=== PATIENT | female | born 1940 | race Caucasian/White ===

== ENCOUNTER 2017-10-13 16:22 | Emergency (ER) | payer OTHER ==
[~2017-10-13] VITALS: Ht 149.9 cm; Wt 62.0 kg
[~2017-10-13 16:22] MED LIST: HYDROCODON-ACE1 EAC7 PO; IBUPROFEN400 MG PO; LIPITOR40 MG PO; LISINOPRIL-HCT1 EAC3 PO
[2017-10-13 17:09] LABS: APPEARANCE CLEAR ((CLEAR)); BILIRUBIN NEGATIVE; BLOOD NEGATIVE; COLOR COLORLESS ((YELLOW)); GLUCOSE (STRIP) NEGATIVE; KETONES NEGATIVE; LEUKOCYTES NEGATIVE; NITRITE NEGATIVE; PROTEIN (STRIP) NEGATIVE; SPECIFIC GRAVITY 1.006 (1.000-1.030); UCUL ADDED? NO; UROBILINOGEN 0.2 MG/DL (0.2-1.0)
[2017-10-13 17:13] LABS: BASOPHIL (%) 0.5 % (0-1); EOSINOPHIL (%) 1.7 % (0-5); EOSINOPHIL COUNT 0.1 K/uL (0-0.3); HEMOGLOBIN 10.6 G/DL (11.9-15.5); IMMATURE GRANULOCYTE (%) 0.5 % (0.0-0.7); LYMPHOCYTE (%) 25.2 % (15-42); LYMPHOCYTE COUNT 1.9 K/uL (1.0-2.8); MCH 27.9 PG (29.0-34.0); MCHC 33.1 G/DL (30.0-36.0); MCV 84.2 FL (83-99); MONOCYTE COUNT 0.9 K/uL (0-0.8); NEUTROPHIL (%) 60.1 % (45-76); NEUTROPHIL COUNT 4.5 K/uL (1.8-6.4); PLATELET COUNT 373 K/uL (156-360); RBC DIS.WIDTH-CV 13.2 % (11.8-14.6); RBC DIS.WIDTH-SD 40.4 % (39-53); WHITE BLOOD COUNT 7.4 K/uL (4.1-10.2)
[2017-10-13 17:23] LABS: ALBUMIN 4.2 g/dL (3.2-4.8); CHLORIDE 101 mEq/L (99-109); POTASSIUM 3.7 mEq/L (3.7-5.4); SODIUM 134 mEq/L (136-147)
[2017-10-13 17:24] LABS: MAGNESIUM 2.2 mg/dL (1.3-2.7)
[2017-10-13 17:26] LABS: GLUCOSE 118 mg/dL (70-99); TOTAL PROTEIN 6.9 g/dL (6.4-8.3)
[2017-10-13 17:28] LABS: TOTAL BILIRUBIN 0.2 mg/dL (0.0-1.0)
[2017-10-13 17:29] LABS: ALKALINE PHOSPHATASE 44 IU/L (3-129); CREATININE 1.3 mg/dL (0.6-1.3); GFR ESTIMATE (CALCULATED) 42 mL/min/
[2017-10-13 17:30] LABS: UREA NITROGEN (BUN) 37 mg/dL (9-23)
[2017-10-13 17:31] LABS: AST (GOT) 22 IU/L (2-34)
[2017-10-13 17:32] LABS: ALT (GPT) 25 IU/L (3-49)
[2017-10-13 17:38] LABS: TROP-I INTERPRETATION NEGATIVE; TROPONIN-I < 0.01 ng/mL (0.0-0.30)
[2017-10-13 18:39] LABS: THYROTROPIN (TSH) 6.8 MIU/L (0.4-5.5)
[2017-10-13 20:20] VITALS: BP 177/74
== END 2017-10-13 20:25 | disposition home or self-care (01) ==
LOC: EME 16:22
PROVIDERS: Physician Assistant Medical
DX: E86.0 Dehydration (principal); I10 Essential (primary) hypertension; E78.5 Hyperlipidemia, unspecified; Z87.440 Personal history of urinary (tract) infections
CPT/HCPCS: 71045; 80053; 81003; 83605; 83735; 84439; 84443; 84484; 85025; 93005; 99281; 99284; J7030